=== PATIENT | male | born 1950 | race Caucasian/White ===

== ENCOUNTER → 2017-07-13 | Outpatient (CLI) | payer OTHER ==
--- NOTE | 2017-07-20 07:49 | SLEEP ---
[address] [address] SLEEP STUDY REPORT Name: DESI KRISHNAMURTHY Room: [facility]#: [id number] Admission: 07/13/17 Attend Phys: Physician not on staf Discharge: Date of : 52 Report #: [id number] THIS REPORT FOR: //name// CC: OLINDA physician/PCP ERIKA FAIRCHILD Physician staff This study has been reviewed in its entirety by a board certified sleep specialist DATE OF SERVICE: 07/13/2017 REQUESTING PHYSICIAN: Dr. Erika Fairchild. Polysomnography was performed. Study was done for complaints of daytime sleepiness. The patient's weight 255 pounds with a BMI of 33.6. [place] sleepiness scale 10. The patient also notes besides daytime sleepiness, has restless sleep. He typically sleeps 7 hours at night. Total recording time was 411 minutes. Total sleep time 308 minutes. Sleep efficiency mildly decreased to 75%. 16% of the time was spent in REM sleep. During the study, there were total of 3 apneas. Two were central, 1 obstructive. There were 27 hypopneas. This resulted in a total apnea-hypopnea index of 5.9. O2 saturations remained greater than 90%. There were total of 192 limb movements noted. There were 70 periodic limb movements noted. With the PLMS arousals, he had a PLMS arousal index of 4.9. Snoring was not noted. He did have a large number of spontaneous arousals as well as those related to his limb movements. IMPRESSION: 1. The study reveals evidence of a mild obstructive sleep apnea. Apnea-hypopnea index total of only 5.9. Some of these were associated with arousals. He also had elevated number of limb movements noted, which also contributed to arousals and disrupted sleep. 2. Elevated body mass index. RECOMMENDATIONS: 1. Could consider a CPAP titration. This may help improve sleep quality. He did not have enough qualifying events during the first part of the study to allow a split study to be done. 2. Could also treat limb movement disorder. This may [place] [address] SLEEP STUDY REPORT Name: DESI KRISHNAMURTHY Room: [facility]#: [id number] Admission: 07/13/17 Attend Phys: Physician not on staf Discharge: Date of : 52 Report #: [id number] as well. 3. Achieving and maintaining ideal body weight. <ELECTRONICALLY SIGNED> By: Maria Elena Pinon MD 07/20/17 0749 0846 [id number] Elena Pinon MD /nt
== END ==
LOC: M.SLEEPLAB 19:58
DX: G47.33 Obstructive sleep apnea (adult) (pediatric) (principal)

== ENCOUNTER 2019-03-21 18:01 | Inpatient (IN) | payer MEDICARE, OTHER ==
[~2019-03-21] VITALS: Ht 185.4 cm; Wt 118.4 kg
[2019-03-21 18:06] VITALS: BP 128/84
[2019-03-21] MEDS ORDERED: FLOMAX0.4 MG PO ×2 (18:12→18:13)
[2019-03-21] MEDS ORDERED: CRESTOR5 MG PO (18:13)
[2019-03-21] MEDS ORDERED: LISINOPRIL2.5 MG PO (18:13)
[2019-03-21] MEDS ORDERED: FISH OIL 1,0001 EAC9 PO (18:14)
[2019-03-21] MEDS ORDERED: ASPIR 8181 M1 PO (18:15)
[2019-03-21 18:24] LABS: ABSOLUTE BASOPHILS 0.1 thou/uL (0.0-0.2); ABSOLUTE EOSINOPHILS 0.4 thou/uL (0.0-0.7); ABSOLUTE LYMPHOCYTES 1.4 thou/uL (0.8-5.3); ABSOLUTE MONOCYTES 0.7 thou/uL (0.0-1.2); ABSOLUTE NEUTROPHILS 4.9 thou/uL (1.6-8.1); EOSINOPHILS 5.4 %; HEMATOCRIT 44.9 % (42.0-52.0); HEMOGLOBIN 15.2 gm/dL (14.0-18.0); LYMPHOCYTES 18.6 %; MCH 31.3 pg (26.0-34.0); MCHC 33.9 g/dL (28.0-37.0); MCV 92.2 fL (80.0-100.0); MONOCYTES 9.4 %; MPV 7.6 fl. (7.2-11.1); NUCLEATED RBCS 0 /100WBC; PLATELET COUNT* 176 thou/uL (150-400); POLYS 65.6 %; RBC 4.87 mil/uL (4.50-6.00); RDW-CV 14.4 % (10.5-14.5); WBC 7.5 thou/uL (4.0-11.0)
[2019-03-21 18:35] LABS: CALCIUM 8.6 mg/dL (8.5-10.1); CREATININE 1.3 mg/dL (0.6-1.3); POTASSIUM 3.8 mmol/L (3.5-5.1)
[2019-03-21 18:37] LABS: APTT 27.1 Seconds (25.0-31.3); PROTIME 10.6 Seconds (9.20-11.50)
[2019-03-21 18:47] LABS: ALBUMIN 3.8 g/dL (3.4-5.0); CK-MB MASS 4.2 ng/mL (<0.5-3.6); MAGNESIUM 1.9 mg/dL (1.8-2.4); TOTAL BILIRUBIN 0.3 mg/dL (<0.1-1.0); TOTAL PROTEIN 7.1 g/dL (6.4-8.2)
[2019-03-21 20:00] VITALS: BP 139/79
[2019-03-21 20:23] VITALS: BP 131/86
--- NOTE | 2019-03-21 22:35 | NUR ---
PT C/O "SOME" JAW PAIN. DISCUSSED WITH PT AND NEED FOR SECOND IV START, NTG GTT AND NEED TO TRANSFER TO ICU. DR CUETO NOTIFIED OF ICU TRANSFER.
[2019-03-21 23:20] VITALS: BP 118/79
--- NOTE | 2019-03-21 23:35 | NUR ---
PT ADMIT TO TELE. AT BEDSIDE. PT DENIED PAIN STATED HE FELT SOMETHING IN LEFT JAW. WHEN ASKED TO RATE PAIN PT RATED 1/10. TELEMETRY SHOWS SR. TROPONIN CAME BACK CRITICAL. DR CUETO NOTIFED. DR CUETO PUT STAT CONSULT CARDIOLOGY. DR CALLE CONSULTED AND NOTIFIED OF TROPONIN, BP AND PAIN LEVEL. ORDER FOR NTG QTT AND LOPRESSOR ORDERED. PT TRANSFERED TO ICU FOR NTG QTT. REPORT GIVEN TO RENAY.
[2019-03-22] VITALS (44 sets, daily range): BP systolic 92–151; BP diastolic 48–90
--- NOTE | 2019-03-22 04:49 | NUR ---
RECIEVED PT FROM TELE AT 2320H, ON NC AT 2LPM.WITH HEPARIN DRIP.PT HAD A CONSTANT LEFT BACK PAIN AND STARTED ON NITROGLYCERIN DRIP.NO BLEEDING NOTED.NPO REMINDED.NO INCREASE OF PAIN AND PAIN NOW IS INTERMITENT.NO EKG CHANGES.CONTINUE MONITORING AND TOWARD GOALS.
[2019-03-22 08:42] LABS: HEMATOCRIT 43.9 % (42.0-52.0); HEMOGLOBIN 14.8 gm/dL (14.0-18.0); MCH 30.9 pg (26.0-34.0); MCHC 33.7 g/dL (28.0-37.0); MCV 91.9 fL (80.0-100.0); MPV 7.7 fl. (7.2-11.1); RBC 4.78 mil/uL (4.50-6.00); RDW-CV 14.8 % (10.5-14.5); WBC 6.6 thou/uL (4.0-11.0)
[2019-03-22 08:53] LABS: CALCIUM 8.4 mg/dL (8.5-10.1); CREATININE 1.1 mg/dL (0.6-1.3); POTASSIUM 4.2 mmol/L (3.5-5.1)
[2019-03-22 09:53] LABS: CHOLESTEROL 113 mg/dL (<200); HDL CHOLESTEROL 37 mg/dL (>40); LDL CHOLESTEROL 61 mg/dL (<100); SERUM ASSESSMENT Clear; TC:HDL 3.1 Ratio (Not establshd); TRIGLYCERIDE 75 mg/dL (<150); VLDL 15 mg/dL (<40)
--- NOTE | 2019-03-22 10:34 | NUR ---
5864 ASSUMED CARE OF PATIENT. PLEASE SEE DOCUMENTED ASSESSMENT. PT IS NPO TO SEE CARDIOLOGY. DENIES CHEST PAIN. NITRO DRIP CURRENTLY IS OFF
--- NOTE | 2019-03-22 10:34 | NUR ---
0900 WAS ABLE TO HAVE HEART HEALTHY BREAKFAST AND IS NOW NPO. CATH CONSENT OBTAINED
--- NOTE | 2019-03-22 10:58 | NUR ---
INT ROUNDS: MET WITH PT AND DTRS. PT PENDING CARDIAC CATH TODAY. PT LIVES WITH SPOUSE, IS INDEPENDENT AND ACTIVE USES NO EQUIPMENT AND HASN'T HAD HH OR BEEN TO SNF. PT IS OLMSTEAD AND IS VERY ACTIVE. PLANS TO RETURN HOME AT [place].
--- NOTE | 2019-03-22 13:47 | EKG ---
[place] [address] ELECTROCARDIOGRAM REPORT Name: DESI KRISHNAMURTHY Room: [address] ADM IN [facility].#: [id number] Admission: 03/21/19 Attend Phys: Debbie Linder MD Discharge: Date of : 52 Report #: [id number] THIS REPORT FOR: //name// [facility] ED Test Date: 2019-03-21 Test Time: 18:07:49 Pat Name: DESI KRISHNAMURTHY Department: Room: [facility] Gender: M Residential Caregiver: : 1950 Requested By: Morteza Iniguez Order Number: [id number] MD: Noe Torres Measurements Intervals [place] Rate: 64 P: 34 TN: 216 QRS: -2 QRSD: 126 T: 35 QT: 414 QTc: 427 Interpretive Statements Sinus rhythm Borderline prolonged [place] interval Probable left atrial enlargement IVCD, consider atypical RBBB No previous ECG available for comparison Electronically Signed On 03-22-2019 13:46:36 PROPERTY DEVELOPER by Noe Torres [email or web address] <ELECTRONICALLY SIGNED> By: Noe Torres MD, [facility] 03/22/19 1346 1807 1807 Noe Torres MD, [facility] /EPI
--- NOTE | 2019-03-22 15:29 | NUR ---
1525 TO EGG PASTEURIZER PER BED. MELISSA IN ATTENDANCE
--- NOTE | 2019-03-22 17:23 | NUR ---
1700 PT RECEIVED BACK FROM BATTERBOARD SETTER PER BED. POST INTERVENTION EKG HAS BEEN COMPLETED. INSTRUCTED ON BEDREST AND POST CATH CARE. FAMILY PRESENT.
--- NOTE | 2019-03-22 17:41 | NUR ---
PATIENT PROGRESSING TOWARDS GOALS. PT HAD STENT PLACED THIS AFTERNOON AND IS ON BEDREST POST CATH. SLIGHT HEADACHE BUT OTHERWISE FREE OF PAIN. VS AND CATH SITE CHARTED. DIET RESUMED. FAMILY IS PRESENT.
--- NOTE | 2019-03-22 18:07 | EKG ---
[place] [address] ELECTROCARDIOGRAM REPORT Name: ARTEMIODESI FARAH Room: [address] ADM IN M.R.#: [id number] Admission: 03/21/19 Attend Phys: Debbie Linder MD Discharge: Date of : 52 Report #: [id number] THIS REPORT FOR: //name// [facility] Test Date: 2019-03-22 Test Time: 16:40:02 Pat Name: DESI KRISHNAMURTHY Department: Room: [address] Gender: M Echo Vasc Tech: : 1950 Requested By: Noe Torres Order Number: [id number] Jefferson MD: Noe Torres Measurements Intervals [place] Rate: 61 P: 51 AR: 238 QRS: -40 QRSD: 129 T: 30 QT: 426 QTc: 429 Interpretive Statements Sinus rhythm early transition Prolonged AR interval Nonspecific IVCD with LAD Compared to ECG 03/21/2019 18:07:49 No significant changes Electronically Signed On 03-22-2019 18:06:40 TELEPHONE INFORMATION SUPERVISOR by Noe Torres [email or web address] <ELECTRONICALLY SIGNED> By: Noe Torres MD, [facility] 03/22/19 1806 1640 1640 Noe Torres MD, [facility] /EPI
[2019-03-23] VITALS (12 sets, daily range): BP systolic 98–144; BP diastolic 54–86
[2019-03-23 04:59] LABS: HEMATOCRIT 44.5 % (42.0-52.0); HEMOGLOBIN 15.1 gm/dL (14.0-18.0); MCH 31.4 pg (26.0-34.0); MCHC 33.9 g/dL (28.0-37.0); MCV 92.5 fL (80.0-100.0); RBC 4.82 mil/uL (4.50-6.00); RDW-CV 14.5 % (10.5-14.5); WBC 6.7 thou/uL (4.0-11.0)
[2019-03-23 05:55] LABS: CALCIUM 8.6 mg/dL (8.5-10.1); CREATININE 1.1 mg/dL (0.6-1.3)
--- NOTE | 2019-03-23 06:03 | NUR ---
ASSUMED CARE AT 1910H, ON RA AND DOES WELL.NO CHEST PAIN THE WHOLE SHIFT.PT UP TO BEDSIDE TO PEE.NO BLEEDING FROM THE PUNCTURE SITE AND PULSE WERE GOOD.CONTINUE MONITORING AND TOWARD GOALS.
--- NOTE | 2019-03-23 08:57 | CON ---
[address] [address] CONSULTATION Name: DESI KRISHNAMURTHY Room: [address] IN .R.#: [id number] Admission: 03/21/19 Attend Phys: Debbie Linder MD Discharge: Date of : 52 Report #: [id number] THIS REPORT FOR: //name// CC: Debbie Veliz INDICATION: Non-ST elevation myocardial infarction. HISTORY OF PRESENT ILLNESS: The patient is a very pleasant 68-year-old gentleman with a history of hypertension, dyslipidemia, BPH and disease. The patient had typical chest discomfort radiating to the left shoulder and jaw yesterday afternoon and presented to his primary care provider's office. An EKG suggested ischemia and he was transported by EMS to the hospital here for further treatment. The patient had continued chest discomfort for at least half an hour. Initial EKG shows ST segment depression suggesting ischemia. Laboratory evaluation showed an initial troponin of 0.23, subsequently 0.7 and 2.73. The patient was placed on a heparin drip and nitroglycerin drip, ultimately with relief of his chest discomfort. At the time of interview, the patient is pain-free. He is without other complaint at this time. PAST MEDICAL HISTORY: 1. Hypertension. 2. Dyslipidemia. 3. BPH. 4. GERD. PAST SURGICAL HISTORY: 1. Cholecystectomy. 2. Right knee surgery. ALLERGIES: SULFA DRUGS. CURRENT MEDICATIONS: Flomax 0.4 mg daily, Crestor 5 mg daily, lisinopril 2.5 mg daily, fish oil 1000 mg daily, aspirin 81 mg daily. SOCIAL HISTORY: The patient drinks alcohol rarely. He does not smoke. PHYSICAL EXAMINATION: VITAL SIGNS: Stable. Blood pressure 110/65, pulse is 56 and regular. GENERAL: This is a pleasant gentleman, in no distress. Mood and affect appropriate. HEENT: Extraocular muscles are intact. Mucous membranes are moist. NECK: Shows no jugular venous distention. There are no carotid bruits. CHEST: Reveals clear lung mcleod without wheezes or rales. CARDIAC: Reveals a regular rhythm with normal S1 and S2. I do [place] [address] CONSULTATION Name: DESI KRISHNAMURTHY Room: [address] [place] [facility]#: [id number] Admission: 03/21/19 Attend Phys: Debbie Linder MD Discharge: Date of : 52 Report #: [id number] ABDOMEN: Reveals normal bowel sounds. The abdomen is soft, nontender. EXTREMITIES: Show no edema. Peripheral pulses are 2+ and palpable. SKIN: Warm and dry. IMPRESSION AND RECOMMENDATIONS: 1. Non-ST elevation myocardial infarction. We will proceed with coronary angiography. Further intervention pending the results of that study. 2. Hypertension. Blood pressure adequately controlled on current regimen. We will make adjustments pending the results of cardiac catheterization. 3. Dyslipidemia. The patient is on Crestor. Fasting lipid profile is pending. 4. Gastroesophageal reflux disease, presently stable. <ELECTRONICALLY SIGNED> By: Luisito Nicholson MD, FACC 03/23/19 0857 0845 0917Mictarah Nicholson MD, FACC /nt
[2019-03-23] MEDS ORDERED: EFFIENT10 MG PO ×2 (09:13→09:58)
[2019-03-23] MEDS ORDERED: TOPROL XL25 MG PO (09:58)
--- NOTE | 2019-03-23 10:00 | NUR ---
PT UP IN CHAIR, HAS DC ORDERS. DENIES NEEDS
--- NOTE | 2019-03-23 10:06 | NUR ---
PATIENT BEING D/C TO HOME PER CARDIOLOGY AND HOPSITALIST. WAITING ON SCHEDULED FOLLOW UP APPOINTMENT FROM NURSE PRACTIONER AND THEN WILL D/C PATIENT WITH PRESCRIPTIONS, BELONGINGS AND PAPERWORK. PRESENT AT THIS TIME.
--- NOTE | 2019-03-23 10:26 | EKG ---
[place] [address] ELECTROCARDIOGRAM REPORT Name: DESI KRISHNAMURTHY Room: [address] ADM IN [facility].#: [id number] Admission: 03/21/19 Attend Phys: Debbie Linder MD Discharge: Date of : 52 Report #: [id number] THIS REPORT FOR: //name// [facility] Test Date: 2019-03-23 Test Time: 08:40:40 Pat Name: DESI KRISHNAMURTHY Department: Room: [facility] Gender: M Ground School Instructor: : 1950 Requested By: Noe Torres Order Number: [id number] Reading MD: Noe Torres Measurements Intervals [place] Rate: 58 P: 37 VA: 214 QRS: -31 QRSD: 130 T: 17 QT: 425 QTc: 418 Interpretive Statements Sinus rhythm Borderline prolonged VA interval Nonspecific intraventricular conduction delay Compared to ECG 03/22/2019 16:40:02 No significant changes Electronically Signed On 03-23-2019 10:25:59 MANAGER BUSINESS PLANNING by Noe Torres [email or web address] <ELECTRONICALLY SIGNED> By: Noe Torres MD, [facility] 03/23/19 1025 9 9 Noe Torres MD, [facility] /EPI
--- NOTE | 2019-03-31 10:00 | CARD ---
[address] [address] CARDIAC CATH REPORT Name: DESI KRISHNAMURTHY Room: [address] IN [facility]#: [id number] Admission: 03/21/19 Attend Phys: Debbie Linder MD Discharge: 03/23/19 Date of : 52 Report #: [id number] THIS REPORT FOR: //name// APPROVED REPORT Study performed: 03/22/2019 14:59:12 Patient Details Patient Status: In-Patient Room #: The patient is a 68 year-old male Event Personnel Luisito Nicholson Convention Worker, Floridalma Méndez RN RN, David MichaelIS Monitor, Nette Delacruz RTR Scrub, Noe Torres Bereavement Program Coordinator Procedures Performed cath pci Indication Non-STEMI , Chest pain Risk Factors Hypercholesterolemia, Hypertension Admission/Lab Medications/Medications given during procedure Glycoprotein IllbIlla Inhibitors, Heparin Unfract. Procedure Narrative The patient was brought electively to the Cardiac Catheterization Laboratory and was prepped and draped in a sterile manner. A [place] 6 FR sheath was inserted into the right femoral artery. Coronary angiography was performed using coronary diagnostic catheters. The right coronary system was accessed and visualized with a Diagnostic JR4 catheter. The left coronary system was accessed and visualized with a Diagnostic JL4 catheter. The left ventricle was accessed and visualized with a Diagnostic Ang PIG catheter. Left ventricular/Aortic Valve gradient assessed via catheter pullback. Left ventriculogram was performed in CORADO projection. Closure device was deployed with a 6 Fr Angioseal STS 6Fr. The patient tolerated the procedure well and there were no complications associated with the procedure. There was no hematoma[place] Intra[place] [address] CARDIAC CATH REPORT Name: DESI KRISHNAMURTHY Room: [address]#: [id number] Admission: 03/21/19 Attend Phys: Debbie Linder MD Discharge: 03/23/19 Date of : 52 Report #: [id number] Sedation start time: 1546 Case end Time: 1629 Fentanyl 25 mcg Versed 1 mg Fluoro Time: 7.3 minutes Dose: DAP 181704 cGycm2 1634 mGy Contrast Type and Amount: Omnipaque 150 ml Coronary Angiography The patient's coronary anatomy is right dominant. Diagnostic Cath Left Main The left main coronary artery is normal and bifurcates into a left anterior descending and circumflex coronary artery. LAD Left anterior descending coronary artery has moderate plaquing up to 30% proximal and midportion. Distal vessel appears to be moderately diffusely plaqued. No hemodynamically significant stenoses were noted. Diagonal 1 The first diagonal branch is mildly plaqued proximally. Diagonal 2 The second diagonal branch is minimally plaqued in the midportion. Circumflex The circumflex is mildly plaqued proximally and terminates in a single large branched obtuse marginal branch that is minimally plaqued. OM1 Large branched vessel that is minimally plaqued. Right Coronary The right coronary artery is mildly plaqued proximally. Distally there appears to be ruptured plaque with thrombus at the bifurcation of the PDA and posterior lateral LV branch. R PDA The right PDA appears minimally plaqued. RPLV The right posterolateral branch appears minimally plaqued. Left Ventriculography The left ventricle is normal in size with normal contractility. The left ventricular ejection fraction is estimated to be 65%. Hemodynamics The aortic pressure is 133/72 mmHg with a mean of 97 mmHg. The left ventricular pressure is 130/10 mmHg with a mean of mmHg. The left ventricular end diastolic pressure is 18 mmHg. There was no gradient across the aortic valve upon pullback. Pullback from the left ventricle to the aorta revealed no gradient across [place] [address] CARDIAC CATH REPORT Name: DEIS KRISHNAMURTHY Room: [address] IN [facility]#: [id number] Admission: 03/21/19 Attend Phys: Debbie Linder MD Discharge: 03/23/19 Date of : 52 Report #: [id number] PCI Technique Lesion Anticoagulation was achieved with Heparin. bolus of iv aggrastat given Percutaneous coronary intervention was performed on the mistal right coronary artery. The lesion stenosis prior to intervention was 90% with PEARL 3 flow. A 6FR JCR 4 100CM Guide Catheter was used to engage the rca ostium. A IG: BMW 190cm Interventional Guidewire was used to cross the lesion. BALLOON DILATION A Balloon catheter Trek RX 2.25 X 12 was inserted and inflated up to 18.00atm for 11seconds. Repeat angiography revealed the following post-dilatation results: 50% stenosis. Small thrombus noted at the start of the procedure. STENT DEPLOYMENT A drug-eluting stent [place] RX Stent 2.5X18mm was inserted and inflated up to 11.00atm for 14seconds. Repeat angiography revealed the following post-stent deployment results: 0% stenosis. Additional Inflation: 14.00atm for 20seconds. Final angiography reveals 0 % stenosis with PEARL 3 flow. Conclusion 1. 90% stenosis noted of the distal rca 2. normal LV systolic function 3. successful placement of a drug eluting stent in the distal rca 4. Mildly elevated left ventricular end-diastolic pressure. Recommendations 1. Continue aggressive risk factor modification. 2. coronary intervention to the distal right coronary artery. Medications Administered Prasugrel Diagnostic Cath Approved by: Luisito Nicholson MD Date/Time: 03/30/2019 18:02:05 <ELECTRONICALLY SIGNED> By: Noe Torres MD, FACC 03/31/19 0959 0959 0959Dapiotr Torres MD, FACC /INF
== END 2019-03-23 11:50 | disposition home or self-care (01) | DRG 246 ==
LOC: M.ERS 18:01 → M.ICU 18:55 → M.TBA-ER 18:55 → M.2W 21:19 → M.ICU 23:20 → M.2W 03-22 18:19 → M.ICU 03-22 18:21
PROVIDERS: Family Medicine; Internal Medicine Cardiovascular Disease; ADMIT Internal Medicine
PROC: B215YZZ Fluoroscopy of Left Heart using Other Contrast (ICD-10-PCS; principal; 2019-03-22)
PROC: 027034Z Dilation of Coronary Artery, One Artery with Drug-eluting Intraluminal Device, Percutaneous Approach (ICD-10-PCS; principal; 2019-03-22)
PROC: 4A023N7 Measurement of Cardiac Sampling and Pressure, Left Heart, Percutaneous Approach (ICD-10-PCS; principal; 2019-03-22)
PROC: B211YZZ Fluoroscopy of Multiple Coronary Arteries using Other Contrast (ICD-10-PCS; principal; 2019-03-22)
DX: I21.4 Non-ST elevation (NSTEMI) myocardial infarction (principal); I50.33 Acute on chronic diastolic (congestive) heart failure; J32.9 Chronic sinusitis, unspecified; E78.00 Pure hypercholesterolemia, unspecified; E78.5 Hyperlipidemia, unspecified; I11.0 Hypertensive heart disease with heart failure; N40.0 Benign prostatic hyperplasia without lower urinary tract symptoms; K21.9 Gastro-esophageal reflux disease without esophagitis; Z90.49 Acquired absence of other specified parts of digestive tract; Z82.49 Family history of ischemic heart disease and other diseases of the circulatory system; Z79.899 Other long term (current) drug therapy; Z79.82 Long term (current) use of aspirin; Z72.89 Other problems related to lifestyle; Z88.2 Allergy status to sulfonamides

== ENCOUNTER 2019-04-12 09:14 | Emergency (ER) | payer MEDICARE, OTHER ==
[~2019-04-12] VITALS: Ht 185.4 cm; Wt 113.4 kg
[~2019-04-12 09:14] MED LIST: ASPIR 8181 M1 PO; CRESTOR5 MG PO; EFFIENT10 MG PO; FISH OIL 1,0001 EAC9 PO; FLOMAX0.4 MG PO; LISINOPRIL2.5 MG PO; TOPROL XL25 MG PO
[2019-04-12] MEDS ORDERED: FLONASE 0.05%50 MCG NARES (09:20)
[2019-04-12] MEDS ORDERED: CEFDINIR300 MG PO (09:20)
[2019-04-12 09:39] LABS: ABSOLUTE BASOPHILS 0.1 thou/uL (0.0-0.2); ABSOLUTE EOSINOPHILS 0.6 thou/uL (0.0-0.7); ABSOLUTE LYMPHOCYTES 1.2 thou/uL (0.8-5.3); ABSOLUTE MONOCYTES 0.5 thou/uL (0.0-1.2); ABSOLUTE NEUTROPHILS 3.1 thou/uL (1.6-8.1); BASOPHILS 1.4 %; EOSINOPHILS 11.3 %; HEMATOCRIT 44.1 % (42.0-52.0); HEMOGLOBIN 15.2 gm/dL (14.0-18.0); LYMPHOCYTES 22.5 %; MCH 31.3 pg (26.0-34.0); MCHC 34.3 g/dL (28.0-37.0); MCV 91.2 fL (80.0-100.0); MONOCYTES 9.2 %; MPV 7.9 fl. (7.2-11.1); NUCLEATED RBCS 0 /100WBC; PLATELET COUNT* 171 thou/uL (150-400); POLYS 55.6 %; RBC 4.84 mil/uL (4.50-6.00); RDW-CV 13.8 % (10.5-14.5); WBC 5.5 thou/uL (4.0-11.0)
[2019-04-12 09:48] LABS: CALCIUM 8.9 mg/dL (8.5-10.1); CREATININE 1.2 mg/dL (0.6-1.3); POTASSIUM 4.3 mmol/L (3.5-5.1)
[2019-04-12 09:52] LABS: INR 1.1
[2019-04-12 10:01] LABS: ALBUMIN 3.6 g/dL (3.4-5.0); CK-MB MASS 1.8 ng/mL (<0.5-3.6); MAGNESIUM 1.9 mg/dL (1.8-2.4); TOTAL BILIRUBIN 0.4 mg/dL (<0.1-1.0); TOTAL PROTEIN 7.1 g/dL (6.4-8.2)
[2019-04-12 11:13] VITALS: BP 145/94
--- NOTE | 2019-04-12 12:57 | EKG ---
[place] [address] ELECTROCARDIOGRAM REPORT Name: DESI KRISHNAMURTHY Room: [facility]#: [id number] Admission: 04/12/19 Attend Phys: Discharge: 04/12/19 Date of : 52 Report #: [id number] THIS REPORT FOR: //name// [facility] ED Test Date: 2019-04-12 Test Time: 09:18:29 Pat Name: DESI KRISHNAMURTHY Department: Room: Gender: M Addresser: Tana : 1950 Requested By: Morteza Iniguez Order Number: [id number] MD: Noe Torres Measurements Intervals [place] Rate: 49 P: 30 ND: 217 QRS: -10 QRSD: 134 T: 3 QT: 442 QTc: 400 Interpretive Statements Sinus bradycardia Right bundle branch block Compared to ECG 03/23/2019 08:40:40 Right bundle-branch block now present Electronically Signed On 04-12-2019 12:57:01 FIELD ORGANIZER by Noe Torres [email or web address] <ELECTRONICALLY SIGNED> By: Noe Torres MD, [facility] 04/12/19 1257 7 7 Noe Torres MD, [facility] /EPI
== END 2019-04-12 11:13 | disposition home or self-care (01) ==
LOC: M.ERS 09:14
PROVIDERS: Family Medicine
DX: R07.89 Other chest pain (principal); E78.00 Pure hypercholesterolemia, unspecified; N40.0 Benign prostatic hyperplasia without lower urinary tract symptoms; Z88.2 Allergy status to sulfonamides; Z90.49 Acquired absence of other specified parts of digestive tract

== ENCOUNTER → 2019-04-20 | Outpatient (CLI) | payer MEDICARE, OTHER ==
[~2019-04-20] MED LIST changes: +CEFDINIR300 MG PO; +FLONASE 0.05%50 MCG NARES
[2019-04-20 10:03] LABS: ABSOLUTE EOSINOPHILS 0.6 thou/uL (0.0-0.7); ABSOLUTE LYMPHOCYTES 1.2 thou/uL (0.8-5.3); ABSOLUTE MONOCYTES 0.6 thou/uL (0.0-1.2); ABSOLUTE NEUTROPHILS 3.7 thou/uL (1.6-8.1); BASOPHILS 0.4 %; HEMATOCRIT 44.8 % (42.0-52.0); HEMOGLOBIN 15.1 gm/dL (14.0-18.0); LYMPHOCYTES 19.7 %; MCHC 33.7 g/dL (28.0-37.0); MONOCYTES 9.1 %; NUCLEATED RBCS 0 /100WBC; PLATELET COUNT* 166 thou/uL (150-400); POLYS 60.8 %; RBC 4.87 mil/uL (4.50-6.00); RDW-CV 13.5 % (10.5-14.5); WBC 6.1 thou/uL (4.0-11.0)
== END ==
LOC: M.LAB 09:47
PROVIDERS: Internal Medicine Cardiovascular Disease
DX: I25.10 Atherosclerotic heart disease of native coronary artery without angina pectoris (principal); R53.83 Other fatigue

== ENCOUNTER 2019-07-26 09:48 | Observation (INO) | payer MEDICARE, OTHER ==
[2019-07-26] VITALS (15 sets, daily range): BP systolic 70–133; BP diastolic 33–85
[~2019-07-26] VITALS: Ht 185.4 cm; Wt 108.9 kg
[~2019-07-26 09:48] MED LIST changes: +COENZYME Q-1030 MG PO; +METOPROLOL TART25 MG PO; +OMEPRAZOLE 20 M20 M1 PO; +SYMBYAX 6-25 M1 EACH
[2019-07-26 10:49] LABS: HEMATOCRIT 46.7 % (42.0-52.0); HEMOGLOBIN 15.7 gm/dL (14.0-18.0); MCH 31.3 pg (26.0-34.0); MCHC 33.5 g/dL (28.0-37.0); MCV 93.5 fL (80.0-100.0); RDW-CV 14.6 % (10.5-14.5); WBC 5.6 thou/uL (4.0-11.0)
[2019-07-26 11:02] LABS: ANION GAP 8 mmol/L (7-16); BUN 20 mg/dL (7-18); CALCIUM 8.8 mg/dL (8.5-10.1); CHLORIDE 106 mmol/L (98-107); CO2 28 mmol/L (21-32); CREATININE 1.1 mg/dL (0.6-1.3); GLUCOSE 100 mg/dL (70-99); SODIUM 142 mmol/L (136-145)
[2019-07-26 11:04] LABS: APTT 28.3 Seconds (25.0-31.3); PROTIME 10.7 Seconds (9.20-11.50)
[2019-07-26 11:07] LABS: ALBUMIN 3.8 g/dL (3.4-5.0); ALKALINE PHOSPHATASE 95 U/L (46-116); CHOLESTEROL 113 mg/dL (<200); HDL CHOLESTEROL 35 mg/dL (>40); LDL CHOLESTEROL 61 mg/dL (<100); SERUM ASSESSMENT Clear; SGOT 21 U/L (15-37); SGPT 26 U/L (30-65); TC:HDL 3.2 Ratio (Not establshd); TOTAL BILIRUBIN 0.5 mg/dL (<0.1-1.0); TOTAL PROTEIN 7.5 g/dL (6.4-8.2); TRIGLYCERIDE 86 mg/dL (<150); VLDL 17 mg/dL (<40)
--- NOTE | 2019-07-26 15:32 | EKG ---
[place] [address] ELECTROCARDIOGRAM REPORT Name: DESI KRISHNAMURTHY Room: [address] M.R.#: [id number] Admission: 07/26/19 Attend Phys: Luisito Nicholson, Discharge: Date of : 52 Date of Service: 07/26/19 1044 Report #: [id number] THIS REPORT FOR: //name// [facility] Test Date: 2019-07-26 Test Time: 10:44:54 Pat Name: DESI KRISHNAMURTHY Department: Room: [facility] Gender: M Quantitative Strategy Analyst: : 1950 Requested By: Luisito Nicholson Order Number: [id number] Reading MD: Devon Moreno Measurements Intervals [place] Rate: 54 P: 0 NH: 217 QRS: -8 QRSD: 119 T: 2 QT: 437 QTc: 415 Interpretive Statements Sinus rhythm Borderline prolonged [place] interval Nonspecific intraventricular conduction delay Nonspecific T abnormalities, inferior leads Compared to ECG 04/12/2019 09:18:29 Intraventricular conduction delay persists T-wave abnormality now present Right bundle-branch block no longer present Electronically Signed On 07-26-2019 15:30:22 CDT by Devon Moreno [email or web address] <ELECTRONICALLY SIGNED> By: Devon Moreno MD, [facility] 07/26/19 1530 1044 1044 Devon Moreno MD, [facility] /EPI
--- NOTE | 2019-07-26 15:35 | EKG ---
[place] [address] ELECTROCARDIOGRAM REPORT Name: DESI KRISHNAMURTHY Room: [address] M.R.#: [id number] Admission: 07/26/19 Attend Phys: Luisito Nicholson, Discharge: Date of : 52 Date of Service: 07/26/19 1338 Report #: [id number] THIS REPORT FOR: //name// [facility] Test Date: 2019-07-26 Test Time: 13:38:29 Pat Name: DESI KRISHNAMURTHY Department: Room: [facility] Gender: M Inspector Quality Assurance: : 1950 Requested By: Luisito Nicholson Order Number: [id number] Reading MD: Devon Moreno Measurements Intervals [place] Rate: 52 P: 41 WV: 220 QRS: -44 QRSD: 130 T: 15 QT: 447 QTc: 416 Interpretive Statements Sinus rhythm Prolonged [place] interval Nonspecific IVCD with LAD Compared to ECG 04/12/2019 09:18:29 First degree AV block now present Intraventricular conduction delay now present Sinus bradycardia no longer present Right bundle-branch block no longer present Electronically Signed On 07-26-2019 15:33:44 CDT by Devon Moreno [email or web address] <ELECTRONICALLY SIGNED> By: Devon Moreno MD, [facility] 07/26/19 1533 1338 1338 Devon Moreno MD, [facility] /EPI
[2019-07-27] VITALS: BP 122/73
[2019-07-27 04:00] VITALS: BP 124/74
[2019-07-27 06:09] LABS: HEMATOCRIT 42.5 % (42.0-52.0); HEMOGLOBIN 14.4 gm/dL (14.0-18.0); MCH 31.4 pg (26.0-34.0); MCHC 33.9 g/dL (28.0-37.0); MCV 92.6 fL (80.0-100.0); MPV 8.1 fl. (7.2-11.1); RBC 4.59 mil/uL (4.50-6.00); RDW-CV 14.2 % (10.5-14.5); WBC 5.1 thou/uL (4.0-11.0)
[2019-07-27 06:25] LABS: ALBUMIN 3.1 g/dL (3.4-5.0); CALCIUM 8.5 mg/dL (8.5-10.1); CREATININE 1.1 mg/dL (0.6-1.3); POTASSIUM 3.7 mmol/L (3.5-5.1); TOTAL BILIRUBIN 0.6 mg/dL (<0.1-1.0); TOTAL PROTEIN 6.1 g/dL (6.4-8.2)
[2019-07-27 08:00] VITALS: BP 126/76
[2019-07-27 11:55] VITALS: BP 123/85
[2019-07-27 12:02] VITALS: BP 123/85
--- NOTE | 2019-07-27 16:37 | EKG ---
[place] [address] ELECTROCARDIOGRAM REPORT Name: DESI KRISHNAMURTHY Room: [address] M.R.#: [id number] Admission: 07/26/19 Attend Phys: Luisito Nicholson, Discharge: 07/27/19 Date of : 52 Date of Service: 07/27/19 0544 Report #: [id number] THIS REPORT FOR: //name// [facility] Test Date: 2019-07-27 Test Time: 05:44:46 Pat Name: DESI KRISHNAMURTHY Department: Room: [facility] Gender: M Novelty Candy Maker: BHAVIK : 1950 Requested By: Luisito Nicholson Order Number: [id number] Jefferson MD: Luisito Nicholson Measurements Intervals [place] Rate: 54 P: 39 [place]: 200 QRS: -7 QRSD: 139 T: 8 QT: 431 QTc: 409 Interpretive Statements Sinus rhythm Right bundle branch block Compared to ECG 07/26/2019 13:38:29 First degree AV block no longer present Electronically Signed On 07-27-2019 16:35:15 CDT by Luisito Nicholson [email or web address] <ELECTRONICALLY SIGNED> By: Luisito Nicholson MD, [facility] 07/27/19 1635 0544 0544 Luisito Nicholson MD, [facility] /EPI
--- NOTE | 2019-07-28 12:03 | CARD ---
[address] [address] CARDIAC CATH REPORT Name: DESI KRISHNAMURTHY Room: [address] Jf Phipps#: [id number] Admission: 07/26/19 Attend Phys: Luisito Nicholson MD Discharge: 07/27/19 Date of : 52 Report #: [id number] THIS REPORT FOR: //name// cc: Silvio Dunlap MD, Douglas W. MD ~ APPROVED REPORT Study performed: 07/26/2019 10:43:36 Patient Details Patient Status: Observation Room #: Event Personnel Dr. Bharat Moreno Procedures Performed Left heart catheterization selective coronary arteriography and PCI to the mid LAD Indication Unstable angina Risk Factors Hypercholesterolemia, Hypertension Previous Procedures/Diagnoses Previous PCI Admission/Lab Medications/Medications given during procedure Angiomax bolus and infusion Procedure Narrative The patient was brought electively to the Cardiac Catheterization Laboratory and was prepped and draped in a sterile manner. The right femoral was infiltrated with 1% Lidocaine subcutaneous anesthesia. A 6 Telugu sheath was inserted into the right femoral artery. Coronary angiography was performed using coronary diagnostic catheters. The right coronary system was accessed and visualized with a Diagnostic catheter. The left coronary system was accessed and visualized with a Diagnostic catheter. The left ventricle was accessed and visualized with a Diagnostic catheter. Left ventricular/Aortic Valve gradient assessed via catheter pullback. Pre-demployment femoral angiogram was performed . Closure device was deployed with a 6 Fr Angioseal. There was no hematoma. [address] [address] CARDIAC CATH REPORT Name: DESI KRISHNAMURTHY Room: [address] Moise#: [id number] Admission: 07/26/19 Attend Phys: Luisito Nicholson MD Discharge: 07/27/19 Date of : 52 Report #: [id number] Coronary Angiography The patient's coronary anatomy is right dominant. Diagnostic Cath Left Main 0% narrowing LAD 80% focal mid LAD stenosis Circumflex 30% mid vessel narrowing Right Coronary Widely patent distal right coronary stent with 30% distal right coronary narrowing Left Ventriculography Left Ventriculography was not performed. Hemodynamics The left ventricular pressure is 14 mmHg with a mean of mmHg. The left ventricular end diastolic pressure is 130/70 mmHg. There was no gradient across the aortic valve upon pullback. PCI Technique Lesion Anticoagulation was achieved with Angiomax. Percutaneous coronary intervention was performed on the mid left anterior descending artery segment. The lesion stenosis prior to intervention was 80% with PEARL 3 flow. A 6 Telugu XB LAD 3.5 Guide Catheter was used to engage the Left ostium. A 014 BMW Interventional Guidewire was used to cross the lesion. BALLOON DILATION A Balloon catheter 2.25 x 12 mm trek was inserted and inflated up to 10atm for 15seconds. STENT DEPLOYMENT A drug-eluting stent 2.25 x 15 mm Isaak was inserted and inflated up to 12atm for 10seconds. Final angiography reveals 0 % stenosis with PEARL 3 flow. Conclusion 1. Significant coronary artery disease characterized by the following: A 80% focal mid LAD stenosis B widely patent distal right coronary stent with 30% distal [place] [address] CARDIAC CATH REPORT Name: DESI KRISHNAMURTHY Room: [address] Jf Phipps#: [id number] Admission: 07/26/19 Attend Phys: Luisito Nicholson MD Discharge: 07/27/19 Date of : 52 Report #: [id number] C 30% narrowing in the midportion of the nondominant circumflex. 2. Normal left-sided hemodynamics study 3. Successful PCI with deployment of a drug-eluting stent at the site of 80% mid LAD stenosis with 0% residual narrowing and PEARL-3 flow to the distal vessel Recommendations Cardiac Risk Reduction Program Aggressive Medical Therapy Medications Administered Clopidogrel Diagnostic Cath Approved by: Luisito Nicholson MD Date/Time: 07/28/2019 12:00:12 <ELECTRONICALLY SIGNED> By: Devon Moreno MD, [facility] 07/28/19 1201 1201 [id number] Moreno MD, FACC /INF
--- NOTE | 2019-07-28 16:12 | D ---
[address] [address] DISCHARGE SUMMARY Name: DESI KRISHNAMURTHY Room: [address] MBennie#: [id number] Admission: 07/26/19 Attend Phys: Luisito Nicholson MD Discharge: 07/27/19 Date of : 52 Report #: [id number] THIS REPORT FOR: //name// cc: Silvio Dunlap MD, Douglas W. MD ~ THIS REPORT FOR: //name// CC: Silvio Nicholson DISCHARGE DIAGNOSES: 1. Coronary artery disease. 2. Unstable angina. 3. Hyperlipidemia. 4. Hypertension. PROCEDURES DURING THE HOSPITALIZATION: 1. Left heart catheterization. 2. Coronary angiography. 3. Percutaneous coronary intervention with drug-eluting stent placement to the mid left anterior descending coronary artery. HOSPITAL COURSE: The patient was admitted to the hospital with continued progressive chest discomfort and dyspnea. The patient has a history of coronary artery disease with previous percutaneous coronary intervention to the distal right coronary artery. The patient underwent coronary angiography. This showed the distal right stent to be widely patent. There was 70% narrowing in the mid left anterior descending coronary artery for which the patient underwent percutaneous coronary intervention with drug-eluting stent placement without complication. DISCHARGE MEDICATIONS: 1. Aspirin 81 mg daily. 2. Effient 10 mg daily. 3. Flomax 0.4 mg daily. 4. Crestor 5 mg daily. 5. Omeprazole 20 mg daily. 6. Fish oil 1000 mg daily. 7. Symbyax 6/25 mg 1 capsule daily. 8. CoQ10 30 mg daily. DISPOSITION: The patient is to follow up with Cardiology in 4 weeks. <ELECTRONICALLY SIGNED> By: Luisito Nicholson MD, FACC 07/28/19 1612 [id number], FACC /nt
== END 2019-07-27 12:45 | disposition home or self-care (01) ==
LOC: M.CL 09:48 → M.2W 12:48 → M.TBA-CV 12:48 → M.2W 13:17
PROVIDERS: ADMIT Internal Medicine Cardiovascular Disease
DX: I25.110 Atherosclerotic heart disease of native coronary artery with unstable angina pectoris (principal); I10 Essential (primary) hypertension; E78.5 Hyperlipidemia, unspecified